=== PATIENT | female | born 1945 | race Caucasian/White ===

== ENCOUNTER 2016-06-26 13:30 | Emergency (ER) | payer MEDICARE, MEDICAID ==
[2016-06-26] MEDS ORDERED: Naproxen 500 MG TAB ONE (14:08)
[2016-06-26] MEDS ORDERED: HYDROcodone/Acetaminophen 10/325 mg Tablet ONE (14:08)
--- NOTE | 2016-06-26 15:44 | RAD ---
TWO VIEWS OF THE RIGHT TIBIA AND FIBULA: 06/26/16 HISTORY: Fall with pain. FINDINGS: Two views right tibia/fibula shows moderate diffuse soft tissue swelling. There is no evidence of fr acture or dislocation. Moderate degenerative changes are seen in the knee. IMPRESSION: No evidence of acute osseous abnormality. POS: [facility]
--- NOTE | 2016-06-26 15:47 | RAD ---
FOUR VIEWS OF THE RIGHT KNEE: 06/26/16 COMPARISON: None. HISTORY: Fall with right leg pain and swelling. FINDINGS: Four views of the right knee shows no evidence of acute fracture or dislocation. Moderate tricompart mental joint disc narrowing and osteophyte formation seen in the right knee. No knee effusion is see n. IMPRESSION: Moderate right knee osteoarthritis. POS: [facility]
--- NOTE | 2016-06-26 15:49 | RAD ---
THREE VIEWS RIGHT ANKLE: COMPARISON: None. HISTORY: Fall with right ankle pain and swelling. FINDINGS: Three views of the right ankle show no evidence of acute fracture or dislocation. There is moderate diffuse soft tissue swelling. Moderate degenerative changes are seen in the mid foot. IMPRESSION: Soft tissue swelling without underlying acute osseous abnormality. POS: [facility]
== END 2016-06-26 15:10 | disposition home or self-care (01) ==
LOC: MADERS 13:30
DX: S80.11XA Contusion of right lower leg, initial encounter (principal); E03.9 Hypothyroidism, unspecified; J45.909 Unspecified asthma, uncomplicated; I50.9 Heart failure, unspecified; Z87.891 Personal history of nicotine dependence; Z79.899 Other long term (current) drug therapy; W07.XXXA Fall from chair, initial encounter

== ENCOUNTER 2016-08-12 10:39 | Outpatient (CLI) | payer MEDICARE, MEDICAID ==
--- NOTE | 2016-08-12 12:53 | RAD ---
RIGHT ANKLE THREE VIEWS: History: Right ankle pain. FINDINGS: Comparison made with exam of 06-26-16. No fracture, dislocation, or bony destruction is seen. A plantar calcaneal spur is seen. There are d egenerative changes in the midfoot. POS: [facility]
--- NOTE | 2016-08-12 12:55 | RAD ---
RIGHT LEG 2 VIEWS: HISTORY: Right leg pain. FINDINGS/IMPRESSION: The right tibia and fibula are intact. There are degenerative changes in the right knee joint. C omparison is made with the exam of 06/26/16. POS: [facility]
== END 2016-08-12 10:40 | disposition home or self-care (01) ==
LOC: MADRAD 10:39
PROVIDERS: ATTEND Obstetrics & Gynecology
DX: M25.571 Pain in right ankle and joints of right foot (principal); M17.11 Unilateral primary osteoarthritis, right knee; M19.071 Primary osteoarthritis, right ankle and foot